=== PATIENT | male | born 1985 | race Caucasian/White ===

== ENCOUNTER 2019-03-27 16:41 | Emergency (ER) | payer SELFPAY ==
[2019-03-27 17:33] LABS: #Basophils 0.1 thou/uL (0.0-0.2); #Eosinphils 0.4 thou/uL (0.0-0.7); #Lymphocytes 2.2 thou/uL (1.20-3.40); #Monocytes 0.6 thou/uL (0.11-0.59); #Neutrophils 7.6 thou/uL (1.40-6.50); %Basophils 0.5 % (0.0-1.0); %Eosinophils 3.9 % (0.0-10.0); %Lymphocytes 20.3 % (21.0-51.0); %Monocytes 5.3 % (0.0-10.0); %Neutrophils 70.1 % (42.0-75.0); Hemoglobin 15.5 g/dL (14.0-18.0); Mean Corpuscular HGB CONC 33.9 g/dL (32.0-36.0); Mean Corpuscular Volume 94.5 fL (78.0-98.0); Mean Platelet Volume 6.3 fL (7.4-10.4); Platelet Count 367 thou/uL (130-400); RBC Distribution Width 11.4 % (11.5-14.5); Red Blood Cell (RBC) Count 4.84 mill/uL (4.70-6.10); White Blood Cell (WBC) Count 10.9 thou/uL (4.8-10.8)
[2019-03-27 17:37] LABS: Bilirubin Negative (Negative); Blood, Urine Large (Negative); Glucose, Urine (Dipstick) Negative (Negative); Leukocyte Moderate (Negative); Nitrite Negative (Negative); Protein, Urine (Dipstick) Negative (Neg-Trace)
[2019-03-27 17:43] LABS: Clarity Cloudy (Clear)
[2019-03-27 17:46] LABS: Bacteria/HPF None Seen HPF (None Seen); Squamous Epithelial None Seen HPF (0-3); WBC/HPF Greater Than 50 HPF (0-3)
[2019-03-27 17:54] LABS: ALT (SGPT) 29 U/L (8-55); AST (SGOT) 20 U/L (5-34); Albumin 4.4 g/dL (3.5-5.0); Alkaline Phosphatase 128 U/L (40-150); Anion Gap 12 mmol/L (10-20); BUN (Urea Nitrogen) 13 mg/dL (8.9-20.6); Bilirubin, Total 0.3 mg/dL (0.2-1.2); Calc. Creatinine Clearance 0 mL/min (70-130); Calcium 9.6 mg/dL (7.8-10.44); Carbon Dioxide 27 mmol/L (22-29); Chloride 103 mmol/L (98-107); Estimated GFR-MDRD 81; Globulin 3.3 g/dL (2.4-3.5); Glucose 102 mg/dL (70-105); Potassium 3.8 mmol/L (3.5-5.1); Protein, Total 7.7 g/dL (6.0-8.3); Sodium 138 mmol/L (136-145)
[2019-03-31 00:24] LABS: Chlam.trachomatis by PCR,Urine Inconclusive (NotDetected)
== END 2019-03-27 18:26 | disposition home or self-care (01) ==
LOC: ERS 16:41
DX: N41.9 Inflammatory disease of prostate, unspecified (principal)
CPT/HCPCS: 36415; 80053; 81003; 81015; 85025; 87491; 87591; 99283

== ENCOUNTER 2019-03-31 11:23 | Emergency (ER) | payer SELFPAY ==
[2019-03-31] MEDS ORDERED: cefTRIAXone\\ROCEPHIN 250 MG VIAL ONE (11:29)
[2019-03-31] MEDS ORDERED: Azithromycin 250 MG TAB ONE (11:29)
[2019-03-31] MEDS ORDERED: Lidocaine 1% PF 5 ML VIAL ONE (11:33)
[2019-03-31] MEDS ORDERED: Lidocaine 1% (PF) 30 ML VIAL ONE (11:33)
== END 2019-03-31 12:23 | disposition home or self-care (01) ==
LOC: ER/OP 11:23
DX: Z11.3 Encounter for screening for infections with a predominantly sexual mode of transmission (principal)
CPT/HCPCS: 96372; J0696; J2001